=== PATIENT | male | born 1980 | race Caucasian/White ===

== ENCOUNTER 2018-03-04 15:17 | Emergency (ER) | payer OTHER ==
[2018-03-04] MEDS ORDERED: NS 0.9% 1000 ML* 1,000 ML IV ONE ×2 (15:35→15:45)
[2018-03-04] MEDS ORDERED: Ondansetron INJ* 2 MG/ML VIAL IV ONE (15:36)
[2018-03-04] MEDS ORDERED: Meclizine TAB* 12.5 MG PO ONE (15:44)
--- NOTE | 2018-03-04 15:56 | UC ---
Nausea/Vomiting/Diarrhea HPI - HPI Summary HPI Summary: Pt. is a 38 y.o male who presents to the for N/V and dizziness that started earlier today. Pt. states he has a walnut allergy and this morning he ate an apple crisp and bagel from a bagel shop. Pt. states after he ate he started to feel dizziness and anxious. Pt. states he went to work vomited a few times. Pt. states he still feels dizzy when he looks down. Pt. states he thinks there may have been walnuts in his breakfast and is concerned he is having an allergic rxn. Pt. denies any rash, itching, CP, SOB, difficulty breathing or swallowing. Pt. denies fever, recent illness, diarrhea, or significant abd. pain. Denies significant pat medical hx. No sick contacts. Sxs are moderate in severity. Movement makes sxs worse. Lying still makes sxs better. - History of Current Complaint Chief Complaint: UCGI Stated Complaint: dizziness, AND NAUSEA Time Seen by Provider: 03/04/18 15:28 Hx Obtained From: Patient Pain Intensity: 3 - Allergies/Home Medications Allergies/Adverse Reactions: Allergies Allergy/AdvReac Type Severity Reaction Status Date / Time walnuts Allergy Severe throat Uncoded 03/04/18 15:39 swelling,vomiting PMH/Surg Hx/FS Hx/Imm Hx Previously Healthy: Yes - Surgical History Surgical History: None - Family History Known Family History: Positive: Non-Contributory - Social History Occupation: Employed Full-time Lives: With Family Alcohol Use: Weekly Substance Use Type: None Smoking Status (MU): Never Smoked Tobacco Review of Systems All Other Systems Reviewed And Are Negative: Yes Constitutional: Positive: Negative. Negative: Fever, Chills Respiratory: Positive: Negative Cardiovascular: Positive: Negative Gastrointestinal: Positive: Vomiting, Nausea. Negative: Diarrhea Neurovascular: Positive: Negative Neurological: Positive: Other - dizziness. Negative: Headache Is Patient Immunocompromised?: No Physical Exam Triage Information Reviewed: Yes Appearance: Well-Appearing - Pt. lying in bed in NAD, appears tired but nontoxic. Vital Signs: Initial Vital Signs Temp 98.6 F 03/04/18 15:40 Pulse 86 03/04/18 15:40 Resp 15 03/04/18 15:40 BP 155/76 03/04/18 15:40 Pulse Ox 99 03/04/18 15:40 Vital Signs Reviewed: Yes Eyes: Positive: Conjunctiva Clear ENT: Positive: Other - lips are chapped and oral mucosa dry Neck exam: Normal Neck: Positive: Supple Respiratory: Positive: Lungs clear, Normal breath sounds Cardiovascular Exam: Normal Abdomen Description: Positive: Nontender, Soft Neurological Exam: Normal Psychological Exam: Normal Skin Exam: Normal Naus/Vom/Diarrhea Course/Dx - Course Course Of Treatment: Pt. presenting for dizziness and vomiting. Afebrile with stable VS. No evidence allergic rxn. Benign abd. exam. Normal neuro exam. Will give IV fluids, zofran and meclizine. After pt. receieved medications he was feeling much better. He did not get meclizine yet but states his dizziness has improved. Pt. requesting to be dc home. He ambulated around the hallway without difficulty. Will dc home. Rx for zofran sent to pharmacy. Increase fliuds and rest. To call PCP tomorrow for an apt. To go to ER if sxs change or worsen. Pt. understands and agrees with plan. - Differential Dx/Diagnosis Differential Diagnoses - Male: Vomiting, Diarrhea, Colitis, Gastritis, Dehydration Provider Diagnosis: Vomiting, Dizziness Condition At Discharge: Improved Discharge - Sign-Out/Discharge Documenting (check all that apply): Patient Departure All imaging exams completed and their final reports reviewed: No Studies - Discharge Plan Condition: Improved Disposition: HOME Prescriptions: Ondansetron TAB* [Zofran 4 MG Tab*] 4 mg PO Q6H PRN #12 tab PRN Reason: Nausea Patient Education Materials: Acute Nausea and Vomiting (ED), Dizziness (ED) Referrals: Noel Sarmiento DO [Primary Care Provider] - Additional Instructions: Schedule a close follow up appointment with your PCP Ar[facility] as directed for nausea Increase fluids and rest Go to ER if symptoms change or worsen - Billing Disposition and Condition Condition: IMPROVED Disposition: Home
[2018-03-04 17:01] VITALS: BP 124/79
== END 2018-03-04 16:42 | disposition home or self-care (01) ==
LOC: UCEAST 15:17
DX: R11.10 Vomiting, unspecified (principal); R42 Dizziness and giddiness; Z91.018 Allergy to other foods
CPT/HCPCS: 96360; 96374; 99212; G0463; J2405

== ENCOUNTER 2018-09-08 10:47 | Emergency (ER) | payer OTHER ==
[2018-09-08 11:04] VITALS: BP 158/90
[2018-09-08] MEDS ORDERED: cefTRIAXone VIAL(*) 250 MG VIAL IM ONE (11:37)
[2018-09-08] MEDS ORDERED: Azithromycin TAB* 250 MG PO ONE (11:38)
[2018-09-08] MEDS ORDERED: Lidocaine 1%* 5 ML VIAL INJ ONE (11:38)
--- NOTE | 2018-09-08 12:27 | UC ---
Complaint Male HPI - HPI Summary HPI Summary: PATIENT HAD ORAL SEX PERFORMED ON HIM BY A NEW PARTNER ABOUT 5 DAYS AGO. DENIES VAGINAL/ANAL PENETRATION. TODAY NOTICED WHITISH YELLOW PENILE DISCHARGE. SLIGHT IRRITATION AT THE URETHRAL MEATUS. NO DYSURIA, FREQUENCY OR URGENCY. NO FEVER, ABDOMINAL PAIN, NAUSEA. IS CONCERNED ABOUT STD. - History of Current Complaint Chief Complaint: UCSTDScreening Stated Complaint: PERSONAL Time Seen by Provider: 09/08/18 11:00 Hx Obtained From: Patient Onset/Duration: Sudden Onset, Lasting Hours, Still Present Timing: Constant Severity Initially: Mild Severity Currently: Mild Pain Intensity: 0 Pain Scale Used: 0-10 Numeric Location: Penis Character: Burning Aggravating Factor(s): Nothing Alleviating Factor(s): Nothing Associated Signs And Symptoms: Positive: Penile Discharge - Allergies/Home Medications Allergies/Adverse Reactions: Allergies Allergy/AdvReac Type Severity Reaction Status Date / Time walnuts Allergy Severe throat Uncoded 03/04/18 15:39 swelling,vomiting Home Medications: Home Medications NK [No Home Medications Reported] 09/08/18 [History Confirmed 09/08/18] PMH/Surg Hx/FS Hx/Imm Hx Previously Healthy: Yes - Surgical History Surgical History: None - Family History Known Family History: Positive: Non-Contributory - Social History Alcohol Use: Rare Substance Use Type: None Smoking Status (MU): Never Smoked Tobacco Review of Systems All Other Systems Reviewed And Are Negative: Yes Constitutional: Positive: Negative Skin: Positive: Negative Respiratory: Positive: Negative Cardiovascular: Positive: Negative Gastrointestinal: Positive: Negative Genitourinary: Positive: Vaginal/Penile Burning, Vaginal/Penile Discharge Physical Exam Triage Information Reviewed: Yes Appearance: Well-Appearing, No Pain Distress, Well-Nourished Vital Signs: Initial Vital Signs Temp 98.1 F 09/08/18 10:59 Pulse 92 09/08/18 10:59 Resp 18 09/08/18 10:59 BP 158/90 09/08/18 10:59 Pulse Ox 96 09/08/18 10:59 Vital Signs Reviewed: Yes Eyes: Positive: Conjunctiva Clear ENT: Positive: Hearing grossly normal Neck: Positive: Supple Respiratory: Positive: No respiratory distress, No accessory muscle use Cardiovascular: Positive: Pulses Normal Abdomen Description: Positive: Soft Male Genital Exam: Positive: Other - DECLINED BY PT Musculoskeletal: Positive: No Edema Neurological: Positive: Alert Psychological: Positive: Age Appropriate Behavior Skin: Negative: Rashes Diagnostics - Laboratory Lab Results: URINE DIP SP. GR. 1.020, TRACE PROTEIN Complaint Male Course/Dx - Course Course Of Treatment: PATIENT CONCERNED ABOUT GONORRHEA/CHLAMYDIA. URINE SENT FOR TESTING. EMPIRIC TREATMENT WITH 250 MG OF ROCEPHIN IM AND 1 G AZITH BY MOUTH. ADVISED NO SEX FOR AT LEAST 7 DAYS. PATIENT DECLINED TESTING FOR HIV AND SYPHILIS. DISCUSSED FOLLOWING UP WITH [facility] FOR MORE THOROUGH STD TESTING AT HIS DISCRETION. - Differential Dx/Diagnosis Provider Diagnosis: Exposure to potentially hazardous body fluids Discharge - Sign-Out/Discharge Documenting (check all that apply): Patient Departure All imaging exams completed and their final reports reviewed: No Studies - Discharge Plan Condition: Stable Disposition: HOME Patient Education Materials: Nonspecific Urethritis in Men (ED) Referrals: Noel Sarmiento DO [Primary Care Provider] - If Needed Additional Instructions: YOUR URINE HAS BEEN SENT FOR TESTING. WE WILL CALL YOU WITH ANY ABNORMAL RESULTS. YOU HAVE BEEN TREATED WITH 250 MG OF ROCEPHIN IM AND 1000 MG OF AZITHROMYCIN BY MOUTH. THIS WILL COVER FOR BOTH GONORRHEA AND CHLAMYDIA. NO SEX FOR AT LEAST 7 DAYS. I RECOMMEND FOLLOWING UP WITH [facility] FOR FURTHER STD TESTING AT YOUR DISCRETION. FOLLOW-UP WITH YOUR PCP IF YOUR SYMPTOMS DO NOT RESOLVE. - Billing Disposition and Condition Condition: STABLE Disposition: Home
[2018-09-09 15:39] LABS: Neisseria gonorrhoeae (GC) RNA Negative (Negative)
== END 2018-09-08 12:25 | disposition home or self-care (01) ==
LOC: UCEAST 10:47
DX: R36.9 Urethral discharge, unspecified (principal); Z77.21 Contact with and (suspected) exposure to potentially hazardous body fluids; Z91.018 Allergy to other foods
CPT/HCPCS: 81003; 87491; 87591; 96372; 99212; A9270-GY; G0463; J0696